=== PATIENT | female | born 1940 | race Caucasian/White ===

== ENCOUNTER 2016-06-29 16:58 | Emergency (ER) | payer OTHER ==
[~2016-06-29] VITALS: Ht 160 cm; Wt 111.9 kg
[~2016-06-29 16:58] MED LIST: ASPIRIN81 M1 PO; ASPIRIN81 M2 PO; Coumadin,Jantoven PO; IBUPROFEN800 MG PO; LASIX20 MG PO; Lovenox SC; NEURONTIN300 MG PO; NORVASC10 MG PO; PROTONIX40 MG PO; Tylenol Regular Stre PO; ZOLOFT50 MG PO
[2016-06-29 17:53] LABS: HEMATOCRIT 37.6 % (36.0-46.0); MCH 30.4 PG (29.0-34.0); MCHC 31.6 G/DL (30.0-36.0); MCV 95.9 FL (83-99); MEAN PLAT.VOLUME 10.3 uM^3 (9.5-12.4); PLATELET COUNT 243 K/uL (156-360); RBC DIS.WIDTH-CV 13.7 % (11.8-14.6); RBC DIS.WIDTH-SD 48.3 % (39-53); RED BLOOD COUNT 3.92 M/uL (3.80-5.20); WHITE BLOOD COUNT 5.6 K/uL (4.1-10.2)
[2016-06-29 18:02] LABS: CHLORIDE 107 mEq/L (99-109); POTASSIUM 4.6 mEq/L (3.7-5.4); SODIUM 143 mEq/L (136-147)
[2016-06-29 18:03] LABS: GLUCOSE 82 mg/dL (70-99)
[2016-06-29 18:05] LABS: ANION GAP 10 MEQ/L (2-14)
[2016-06-29 18:07] LABS: GFR ESTIMATE (CALCULATED) > 59 mL/min/
[2016-06-29 18:08] LABS: UREA NITROGEN (BUN) 24 mg/dL (9-23)
[2016-06-29 18:10] LABS: PROTHROMBIN TIME 10.4 (9.2-11.2); PTT 28.5 (25-32)
[2016-06-29 18:33] LABS: TROP-I INTERPRETATION NEGATIVE; TROPONIN-I < 0.01 ng/mL (0.0-0.30)
[2016-06-29 21:13] VITALS: BP 130/92
== END 2016-06-29 21:24 | disposition home or self-care (01) ==
LOC: EME 16:58
PROVIDERS: Physician Assistant Medical
DX: R06.02 Shortness of breath (principal); Z86.718 Personal history of other venous thrombosis and embolism; I48.91 Unspecified atrial fibrillation; Z79.82 Long term (current) use of aspirin; I10 Essential (primary) hypertension; K21.9 Gastro-esophageal reflux disease without esophagitis; E78.5 Hyperlipidemia, unspecified; F32.9 Major depressive disorder, single episode, unspecified; Z72.0 Tobacco use
CPT/HCPCS: 71275; 80048; 84484; 85027; 85610; 85730; 93005; 99281; 99285

== ENCOUNTER 2017-03-03 00:48 | Inpatient (IN) | payer OTHER ==
[~2017-03-03] VITALS: Ht 160 cm; Wt 107.4 kg
[~2017-03-03 00:48] MED LIST changes: +BUSPAR5 MG PO; +COREG25 M1 PO; +ENTRESTO 24 MG1 EACH PO; +FLEXERIL10 MG PO; +XARELTO20 MG PO
[2017-03-03 01:35] LABS: CARBON DIOXIDE (BICARBONATE) 30.8 MEQ/L (20-31)
[2017-03-03 01:40] LABS: HEMATOCRIT 38.4 % (36.0-46.0); HEMOGLOBIN 12.4 G/DL (11.9-15.5); MCH 31.3 PG (29.0-34.0); MCHC 32.3 G/DL (30.0-36.0); PLATELET COUNT 189 K/uL (156-360); RBC DIS.WIDTH-CV 14.2 % (11.8-14.6); RED BLOOD COUNT 3.96 M/uL (3.80-5.20); WHITE BLOOD COUNT 4.5 K/uL (4.1-10.2)
[2017-03-03 01:44] LABS: INTER. NORMALIZED RATIO 1.9
[2017-03-03 01:50] LABS: ALBUMIN 3.8 g/dL (3.2-4.8); CHLORIDE 104 mEq/L (99-109); POTASSIUM 4.5 mEq/L (3.7-5.4); SODIUM 137 mEq/L (136-147)
[2017-03-03 01:52] LABS: GLUCOSE 131 mg/dL (70-99)
[2017-03-03 01:53] LABS: TOTAL PROTEIN 6.7 g/dL (6.4-8.3)
[2017-03-03 01:54] LABS: TOTAL BILIRUBIN 0.5 mg/dL (0.0-1.0)
[2017-03-03 01:56] LABS: ALKALINE PHOSPHATASE 58 IU/L (3-129); CREATININE 1.1 mg/dL (0.6-1.3); GFR ESTIMATE (CALCULATED) 51 mL/min/
[2017-03-03 01:57] LABS: UREA NITROGEN (BUN) 17 mg/dL (9-23)
[2017-03-03 01:58] LABS: AST (GOT) 52 IU/L (2-34)
[2017-03-03 01:59] LABS: ALT (GPT) 56 IU/L (3-49); LIPASE 9 U/L (1.0-51.0)
[2017-03-03 02:02] LABS: TROP-I INTERPRETATION NEGATIVE; TROPONIN-I < 0.01 ng/mL (0.0-0.30)
[2017-03-03 02:49] LABS: APPEARANCE CLEAR ((CLEAR)); BILIRUBIN NEGATIVE; BLOOD SMALL; COLOR YELLOW ((YELLOW)); GLUCOSE (STRIP) NEGATIVE; KETONES NEGATIVE; LEUKOCYTES NEGATIVE; NITRITE NEGATIVE; PROTEIN (STRIP) 100; SPECIFIC GRAVITY 1.015 (1.000-1.030); UROBILINOGEN 0.2 MG/DL (0.2-1.0)
[2017-03-03 02:57] LABS: BACTERIA NONE SEEN /HPF; EPITHELIAL CELLS 1+ /HPF; MUCUS TRACE /LPF; UCUL ADDED? NO; WHITE BLOOD CELLS 0-5 /HPF (0-5)
[2017-03-03] MEDS ORDERED: TRAMADOL HCL50 MG PO (10:22)
[2017-03-03] MEDS ORDERED: RANITIDINE HCL150 MG PO (10:23)
[2017-03-03 12:00] VITALS: BP 119/59
[2017-03-03 13:51] LABS: TROP-I INTERPRETATION NEGATIVE; TROPONIN-I 0.01 ng/mL (0.0-0.30)
[2017-03-03 16:02] VITALS: BP 116/70
[2017-03-03 18:16] LABS: TROP-I INTERPRETATION NEGATIVE; TROPONIN-I < 0.01 ng/mL (0.0-0.30)
[2017-03-03 20:00] VITALS: BP 146/70
[2017-03-03 23:55] VITALS: BP 124/67
[2017-03-04 04:00] VITALS: BP 118/82
[2017-03-04 06:05] LABS: HEMATOCRIT 42.4 % (36.0-46.0); HEMOGLOBIN 13.4 G/DL (11.9-15.5); MCHC 31.6 G/DL (30.0-36.0); MCV 95.1 FL (83-99); PLATELET COUNT 238 K/uL (156-360); RBC DIS.WIDTH-CV 14.1 % (11.8-14.6); RBC DIS.WIDTH-SD 49.6 % (39-53); RED BLOOD COUNT 4.46 M/uL (3.80-5.20); WHITE BLOOD COUNT 4.7 K/uL (4.1-10.2)
[2017-03-04 06:30] LABS: ALBUMIN 4.1 G/DL (3.2-4.8); ALKALINE PHOSPHATASE 55 IU/L (3-129); ALT (GPT) 41 IU/L (3-49); AST (GOT) 34 IU/L (2-34); CHLORIDE 100 MEQ/L (99-109); CREATININE 1.3 MG/DL (0.6-1.3); GFR ESTIMATE (CALCULATED) 42 mL/min/; GLUCOSE 107 mg/dL (70-99); POTASSIUM 4.3 MEQ/L (3.7-5.4); SODIUM 139 MEQ/L (136-147); TOTAL BILIRUBIN 0.6 MG/DL (0.0-1.0); UREA NITROGEN (BUN) 24 mg/dL (9-23)
[2017-03-04 08:39] VITALS: BP 121/76
[2017-03-04 12:30] VITALS: BP 110/62
[2017-03-04 16:30] VITALS: BP 120/70
[2017-03-04 20:00] VITALS: BP 120/60
[2017-03-04 23:55] VITALS: BP 100/60
[2017-03-05] VITALS (8 sets, daily range): BP systolic 87–124; BP diastolic 53–79
[2017-03-05 06:03] LABS: HEMATOCRIT 40.9 % (36.0-46.0); MCHC 31.8 G/DL (30.0-36.0); MCV 97.4 FL (83-99); PLATELET COUNT 208 K/uL (156-360); RBC DIS.WIDTH-CV 14.3 % (11.8-14.6); RBC DIS.WIDTH-SD 51.4 % (39-53); WHITE BLOOD COUNT 4.3 K/uL (4.1-10.2)
[2017-03-05 06:27] LABS: CHLORIDE 98 MEQ/L (99-109); CREATININE 1.1 MG/DL (0.6-1.3); GFR ESTIMATE (CALCULATED) 51 mL/min/; GLUCOSE 100 mg/dL (70-99); POTASSIUM 4.3 MEQ/L (3.7-5.4); SODIUM 138 MEQ/L (136-147); UREA NITROGEN (BUN) 22 mg/dL (9-23)
[2017-03-06 04:06] VITALS: BP 102/68
[2017-03-06 06:47] LABS: CHLORIDE 100 MEQ/L (99-109); CREATININE 1.3 MG/DL (0.6-1.3); GFR ESTIMATE (CALCULATED) 42 mL/min/; GLUCOSE 97 mg/dL (70-99); POTASSIUM 4.2 MEQ/L (3.7-5.4); SODIUM 139 MEQ/L (136-147); UREA NITROGEN (BUN) 29 mg/dL (9-23)
[2017-03-06 09:00] VITALS: BP 119/62
[2017-03-06 12:00] VITALS: BP 90/62
[2017-03-06 14:15] LABS: HDL CHOLESTEROL 41 MG/DL (Desirable>=50); LDL CHOLESTEROL 68 mg/dL (Desirable<100); NON-HDL CHOLESTEROL 91 mg/dL (Desirable<160); TOTAL CHOLESTEROL 132 mg/dL (Desirable<200); TRIGLYCERIDES 116 MG/DL (Normal: <150)
[2017-03-06 16:00] VITALS: BP 112/64
[2017-03-06 20:33] VITALS: BP 132/78
[2017-03-06 23:39] VITALS: BP 122/86
[2017-03-07 03:56] VITALS: BP 124/72
[2017-03-07] MEDS ORDERED: CARVEDILOL25 MG PO (10:07)
[2017-03-07] MEDS ORDERED: PREDNISONE10 MG PO (10:11)
[2017-03-07] MEDS ORDERED: PRAVASTATIN SOD40 MG PO (11:13)
[2017-03-07 15:00] VITALS: BP 139/64
== END 2017-03-07 16:19 | disposition home or self-care (01) | DRG 292 ==
LOC: EME → EDBD 00:48 → 4EAST 05:47 → EDOF 05:47 → ENRESERV 05:54 → 4EAST 12:28
PROVIDERS: Emergency Medicine; Hospitalist; Internal Medicine
DX: I50.23 Acute on chronic systolic (congestive) heart failure (principal); J20.9 Acute bronchitis, unspecified; J44.0 Chronic obstructive pulmonary disease with (acute) lower respiratory infection; J44.1 Chronic obstructive pulmonary disease with (acute) exacerbation; I42.9 Cardiomyopathy, unspecified; I34.1 Nonrheumatic mitral (valve) prolapse; E78.5 Hyperlipidemia, unspecified; E66.9 Obesity, unspecified; I48.91 Unspecified atrial fibrillation; I11.0 Hypertensive heart disease with heart failure; Z99.81 Dependence on supplemental oxygen; Z79.82 Long term (current) use of aspirin; Z79.01 Long term (current) use of anticoagulants; Z87.891 Personal history of nicotine dependence
CPT/HCPCS: 71045; 80048; 80053; 80061; 81003; 82803; 83605; 83690; 83880; 84484; 85027; 85610; 85730; 87040; 93005; 94640; 94640 76; 94799; 99202; 99281; 99285; J0696; J1100; J1940; J2920; J7644